=== PATIENT | female | born 1940 | race Two or more races ===

== ENCOUNTER 2018-04-29 08:19 | Outpatient (CLI) | payer OTHER | END 2018-04-29 08:21 | disposition home or self-care (01) | LOC: SONOGRAMA 08:19 | DX: E04.1 Nontoxic single thyroid nodule (principal) ==

== ENCOUNTER → 2021-04-06 11:51 | Outpatient (CLI) | payer OTHER ==
[~2021-04-06 11:51] MED LIST: AMLODIPINE-OLM1 EAC2 PO; ATORVASTATIN CA20 MG PO; AVAPRO300 MG PO; TOPROL XL25 M1 PO
== END | disposition home or self-care (01) ==
LOC: EKG 11:51
PROVIDERS: ATTEND Orthopaedic Surgery
DX: I10 Essential (primary) hypertension (principal); R94.31 Abnormal electrocardiogram [ECG] [EKG]

== ENCOUNTER 2021-04-14 06:51 | Day surgery (SDC) | payer OTHER | END 2021-04-14 15:10 | disposition home or self-care (01) | LOC: CIR.AMB 06:51 | PROVIDERS: ATTEND Orthopaedic Surgery | DX: M75.122 Complete rotator cuff tear or rupture of left shoulder, not specified as traumatic (principal); M75.22 Bicipital tendinitis, left shoulder; Z20.822 Contact with and (suspected) exposure to COVID-19 ==

== ENCOUNTER 2021-04-16 13:52 | Emergency (ER) | payer OTHER ==
[~2021-04-16] VITALS: Ht 154.9 cm; Wt 86.2 kg
[2021-04-16] MEDS ORDERED: TOPROL XL25 M1 (14:09)
[2021-04-16] MEDS ORDERED: CEFADROXIL500 MG (14:10)
[2021-04-16] MEDS ORDERED: ATORVASTATIN CA10 MG (14:10)
[2021-04-16] MEDS ORDERED: NORVASC2.5 M1 (14:11)
[2021-04-16] MEDS ORDERED: IRBESARTAN-HCT1 EAC1 (14:11)
[2021-04-16] MEDS ORDERED: OMEPRAZOLE20 MG (14:11)
[2021-04-16] MEDS ORDERED: ENDOCET 10-3251 EACH (14:12)
[2021-04-16] MEDS ORDERED: KETO10TA2 (14:13)
== END 2021-04-16 23:56 | disposition home or self-care (01) ==
LOC: ER 13:52
DX: K29.60 Other gastritis without bleeding (principal); K52.89 Other specified noninfective gastroenteritis and colitis; K92.1 Melena